=== PATIENT | female | born 1935 | race Caucasian/White ===

== ENCOUNTER 2017-06-02 21:57 | Inpatient (IN) | payer MEDICARE, OTHER ==
[2017-06-02] MEDS ORDERED: Acetaminophen TAB* 325 MG PO PRN (22:35)
[2017-06-02] MEDS ORDERED: Ondansetron ODT TAB* 4 MG SL PRN (22:38)
[2017-06-02] MEDS ORDERED: Morphine ORAL.SOLN 10 mg* 2 MG/ML UDC 5 ml PO PRN ×2 (22:38→22:52)
[2017-06-02] MEDS ORDERED: traMADol TAB* 50 MG PO PRN (22:39)
--- NOTE | 2017-06-02 22:56 | PN ---
Progress Note - Progress Note Date of Service: 06/02/17 Note: Addendum to H&P: HCP is Charo Stahl however number provided to hospice is incorrect. P
[2017-06-02] MEDS ORDERED: Morphine ORAL.SOLN 10 mg* 2 MG/ML UDC 5 ml ONE (22:58)
[2017-06-02] MEDS ORDERED: LORazepam TAB(*) 0.5 MG ONE (22:58)
[2017-06-02] MEDS ORDERED: fentaNYL PATCH 12 MCG/HR ONE (22:59)
[2017-06-02] MEDS: LORazepam TAB(*) 0.5 MG PO PRN (23:01)
[2017-06-02] MEDS: fentaNYL PATCH 12 MCG/HR TRANSDERM SCH (23:01)
[2017-06-03 00:02] VITALS: BP 137/110
[2017-06-03] MEDS: Morphine ORAL CONCENTRATE* 5 MG/0.25 ML ORAL.SYRIN PO PRN ×4 (02:06→11:43)
[2017-06-03] MEDS ORDERED: LORazepam TAB(*) 1 MG PO ONE (03:00)
[2017-06-03] MEDS ORDERED: LORazepam TAB(*) 1 MG ONE (03:06)
--- NOTE | 2017-06-03 05:58 | HP ---
CC: Dr. Razia Cuellar * ADMISSION HISTORY AND PHYSICAL: DATE OF ADMISSION: 06/02/17 PRIMARY CARE PROVIDER: Dr. Razia Cuellar. CODE STATUS: DNR, discussed with nurse practitioner, Renata Abdalla from [facility]. HEALTHCARE PROXY: None. The patient has no family or relatives. SOURCE OF INFORMATION: History obtained from discussion with Renata Abdalla from [facility] as well as review of past medical records. HISTORY OF PRESENT ILLNESS: This is an 82-year-old female with past medical history of tongue neoplasm, status post 2 resections; colon cancer, status post colectomy; CKD; hypothyroidism; lupus; anemia and hypertension as well as admission in April of 2016 for recurrent hip effusion thoughts represent septic arthritis who is discharged at that point to [facility] and has been well on [facility] until the last several days she had increasing nausea and oral secretions for which she was started on scopolamine patch. After initiation of the scopolamine patch, she was noted to be more confused today and had 5 or 6 falls at home. I was contacted by Renata Abdalla from [facility], who requested a direct admission for stabilization on hospice until her confusion resolved or she could be placed on more safe location, which I accepted. I discussed with Renata and the patient remains DNR/DNI, although she did not come with the MOLST form, which I have requested be brought tomorrow. When seen by this author, the patient was confused, slightly agitated, was unable to contribute meaningfully to the history of present illness. PAST MEDICAL HISTORY: Includes CKD; hypothyroidism; systemic lupus erythematosus; anemia; hypertension; tongue neoplasm, status post resection and colon cancer, status post colectomy; left hip recurrent effusion with possible septic arthritis; and protein-calorie malnutrition. MEDICATIONS: The patient unable to contribute meaningfully to review of medications. Previous medications included: 1. Fentanyl patch. 2. Scopolamine. 3. Lorazepam. 4. Hydrocodone. 5. Ferrous sulfate. 6. Docusate. 7. Morphine oral concentrate. 8. Lidocaine topical. 9. Doxepin. 10. Tramadol. 11. Atarax. 12. Montelukast. ALLERGIES: PENICILLIN, PROCAINE, SULFA, KEFLEX, and ERYTHROMYCIN. FAMILY HISTORY: Father has a history of CAD. SOCIAL HISTORY: Has no family or friends in the area, has no healthcare proxy, not a smoker, no drinker. Unable to identify healthcare proxy, although previously listed as Charo. REVIEW OF SYSTEMS: Unable to obtain from patient, does include increased nausea and secretions as indicated from Renata. PHYSICAL EXAMINATION GENERAL: Lying on her side, is confused, talking nonsensically, has copious secretions coming from her mouth. VITAL SIGNS: No vitals to be taken. LUNGS: Clear. HEART: Regular rate and rhythm. Rest of the exam deferred. DIAGNOSTIC STUDIES/LAB DATA: Labs reviewed, none. Data reviewed, none. ASSESSMENT AND PLAN: Delores Ballard is an 82-year-old female with tongue malignancy and severe protein-calorie malnutrition, currently on hospice care, receiving palliative measures, now presenting with confusion and recurrent falls after the initiation of scopolamine patch. 1. Recurrent falls and confusion I suspect in the setting of scopolamine patch. We have been requested not to perform interventions for further elucidation of etiology including withholding blood tests. The purpose of this admission is explicitly to provide a safe environment while the patient is confused and transition to a higher level of care. 2. Tongue cancer. Palliative intent. 3. Comfort measures. We will include fentanyl, oral morphine, hydrocodone, lorazepam, lidocaine ointment, tramadol, and hydroxyzine. 4. Confusion. Holding scopolamine. 5. DVT prophylaxis. None in the setting of comfort measures. [id number]/[facility] #: [id number] RORO
[2017-06-03] MEDS: fentaNYL Patch Check Q Shift 1 NOTE SCH ×2 (06:59→19:16)
[2017-06-03] MEDS: Docusate CAP* 100 MG PO SCH ×2 (08:44→22:05)
[2017-06-03] MEDS: DOXEPIN 10 MG PO SCH (08:45)
--- NOTE | 2017-06-03 13:58 | PN ---
Subjective Date of Service: 06/03/17 Interval History: Pt awakens to voice and tries to speak but her speech is very garbled secondary to a very dry mouth. No issues reported by nursing. Objective Active Medications: Acetaminophen (Tylenol Tab*) 650 mg PO Q4H PRN PRN Reason: FEVER/PAIN Docusate Sodium (Colace Cap*) 100 mg PO BID [facility] Last Admin: 06/03/17 08:44 Dose: Not Given Fentanyl (Duragesic Patch 12 Mcg/Hr *) 12 mcg TRANSDERM Q72H [facility] Last Admin: 06/02/17 23:01 Dose: 12 mcg Hydroxyzine HCl (Atarax Tab*) 25 mg PO Q4H PRN PRN Reason: ITCHING Lorazepam (Ativan Tab(*)) 0.5 mg PO Q6HR PRN PRN Reason: ANXIETY Last Admin: 06/02/17 23:01 Dose: 0.5 mg Montelukast Sodium (Singulair Tab*) 10 mg PO BEDTIME [facility] Morphine Sulfate (Morphine Oral Concentrate*) 5 mg PO Q3H PRN PRN Reason: PAIN Last Admin: 06/03/17 11:43 Dose: 5 mg Non Formulary Med ( Doxepin 10mg Capsule ) 1 dose PO DAILY [facility] PRN Reason: Protocol Last Admin: 06/03/17 08:45 Dose: Not Given Ondansetron HCl (Zofran Odt Tab*) 4 mg SL Q6H PRN PRN Reason: NAUSEA/VOMITING Pharmacy Profile Note (Fentanyl Patch Check Q Shift) 0 note N/A 0700,1900 [facility] Last Admin: 06/03/17 06:59 Dose: 1 note Tramadol HCl (Ultram*) 50 mg PO Q6H PRN PRN Reason: PAIN - MODERATE TO SEVERE Vital Signs - 8 hr 06/03/17 06/03/17 06/03/17 07:45 08:00 08:42 Respiratory 18 18 16 Rate 06/03/17 06/03/17 11:22 11:43 Respiratory 14 14 Rate Oxygen Devices in Use Now: None Appearance: Elderly female lying flat in bed sleeping, awakens to voice, seems agitated at times, NAD Eyes: No Scleral Icterus Ears/Nose/Mouth/Throat: - - very dry oral mucosa with what appears to be crusted blood Respiratory: Symmetrical Chest Expansion and Respiratory Effort, Clear to Auscultation - anteriorly Cardiovascular: NL Sounds; No Murmurs; No JVD, No Edema, - - tachycardic but regular Abdominal: NL Sounds; No Tenderness; No Distention Extremities: No Clubbing, Cyanosis Skin: - - wound under chin without erythema, scant drainage Neurological: - - agitated, yells at me about certain questions but I can not understand what she is saying Assess/Plan/Problems-Billing Ms Ballard is an 82 yo F who has a h/o tongue cancer and has been on hospice at home was admitted for a safe place to reside due to confusion and frequent falls after initiating a scopolamine patch for increased secretions. The patient seems agitated. She has not been awake much and does not appear to have eaten anything today. Will continue inpatient hospice while awaiting bed offer as it appears the patient can not return home safely. Continue prn ativan and morphine. Continue fentanyl patch.
[2017-06-03] MEDS: Montelukast Sodium TAB* 10 MG PO SCH (22:06)
[2017-06-04] MEDS: Morphine ORAL CONCENTRATE* 5 MG/0.25 ML ORAL.SYRIN PO PRN ×6 (01:01→23:47)
[2017-06-04] MEDS: Docusate CAP* 100 MG PO SCH ×2 (07:56→19:41)
[2017-06-04] MEDS: DOXEPIN 10 MG PO SCH (07:56)
[2017-06-04] MEDS: fentaNYL Patch Check Q Shift 1 NOTE SCH ×2 (08:04→19:38)
--- NOTE | 2017-06-04 16:13 | PN ---
Subjective Date of Service: 06/04/17 Interval History: Pt is feeling ok. She does c/o pain in her R mandible. She has been trying to eat ice cream and juice but is having a hard time. She denies any SOB. Objective Active Medications: Acetaminophen (Tylenol Tab*) 650 mg PO Q4H PRN PRN Reason: FEVER/PAIN Docusate Sodium (Colace Cap*) 100 mg PO BID [facility] Last Admin: 06/04/17 07:56 Dose: Not Given Fentanyl (Duragesic Patch 12 Mcg/Hr *) 12 mcg TRANSDERM Q72H [facility] Last Admin: 06/02/17 23:01 Dose: 12 mcg Hydroxyzine HCl (Atarax Tab*) 25 mg PO Q4H PRN PRN Reason: ITCHING Lorazepam (Ativan Tab(*)) 0.5 mg PO Q6HR PRN PRN Reason: ANXIETY Last Admin: 06/02/17 23:01 Dose: 0.5 mg Montelukast Sodium (Singulair Tab*) 10 mg PO BEDTIME [facility] Last Admin: 06/03/17 22:06 Dose: Not Given Morphine Sulfate (Morphine Oral Concentrate*) 5 mg PO Q3H PRN PRN Reason: PAIN Last Admin: 06/04/17 08:03 Dose: 5 mg Non Formulary Med ( Doxepin 10mg Capsule ) 1 dose PO DAILY [facility] PRN Reason: Protocol Last Admin: 06/04/17 07:56 Dose: Not Given Ondansetron HCl (Zofran Odt Tab*) 4 mg SL Q6H PRN PRN Reason: NAUSEA/VOMITING Last Admin: 06/04/17 01:02 Dose: 4 mg Pharmacy Profile Note (Fentanyl Patch Check Q Shift) 0 note N/A 0700,1900 [facility] Last Admin: 06/04/17 08:04 Dose: 1 note Tramadol HCl (Ultram*) 50 mg PO Q6H PRN PRN Reason: PAIN - MODERATE TO SEVERE Oxygen Devices in Use Now: None Appearance: Elderly female sitting on the edge of the bed, trying to eat, NAD Eyes: No Scleral Icterus Ears/Nose/Mouth/Throat: Mucous Membranes Moist, - - edentulous on the bottom, partial glossectomy Respiratory: Symmetrical Chest Expansion and Respiratory Effort, Clear to Auscultation - diminished in all lung negron Cardiovascular: NL Sounds; No Murmurs; No JVD, RRR, No Edema Abdominal: NL Sounds; No Tenderness; No Distention Extremities: No Clubbing, Cyanosis Skin: No Nodules or Sclerosis Neurological: Alert and Oriented x 3 Assess/Plan/Problems-Billing Ms Ballard is an 82 yo F who has a h/o tongue cancer and has been on hospice at home was admitted for a safe place to reside due to confusion and frequent falls after initiating a scopolamine patch for increased secretions. Today the patient is much more alert, her speech is understandable. I suspect her decline prior to admission was secondary to scopolamine. She absolutely does not want to go to a NH for hospice. She in fact spells "H-O-M-[id number]" when we talk about her discharge plan. Will need to discuss with hospice about going home vs a NH. Continue current medication regimen.
[2017-06-04] MEDS: Montelukast Sodium TAB* 10 MG PO SCH (19:41)
[2017-06-04] MEDS: hydrOXYzine HCL TAB* 25 MG PO PRN (20:50)
--- NOTE | 2017-06-04 21:04 | PN ---
Progress Note - Progress Note Date of Service: 06/04/17 Note: Called by patient's primary RN as patient was asking for her levothyroxine to be resumed. Patient adamant that she would like to continue this medication. Reviewed prior discharge summary from 04/2016 and note that patient was on 225mcg daily. Will resume now, nurse to try to confirm dosing with patient this evening as well.
[2017-06-04] MEDS: LORazepam TAB(*) 0.5 MG PO PRN (22:54)
[2017-06-05] MEDS: fentaNYL Patch Check Q Shift 1 NOTE SCH ×2 (06:05→18:44)
[2017-06-05] MEDS: Morphine ORAL CONCENTRATE* 5 MG/0.25 ML ORAL.SYRIN PO PRN ×2 (06:06→13:53)
[2017-06-05] MEDS: LORazepam TAB(*) 0.5 MG PO PRN ×2 (06:07→13:54)
[2017-06-05] MEDS: Levothyroxine TAB* 125 MCG TAB PO SCH (06:07)
[2017-06-05] MEDS: hydrOXYzine HCL TAB* 25 MG PO PRN ×2 (06:07→13:54)
[2017-06-05] MEDS: Levothyroxine TAB* 100 MCG TAB PO SCH (06:07)
--- NOTE | 2017-06-05 10:47 | PN ---
Subjective Date of Service: 06/05/17 Interval History: Pt has been sleeping much of the morning. When I wake her up to talk about making sure she has all of her services in place to go back home with hospice she states I am confusing her and she wants to in her house. Objective Active Medications: Acetaminophen (Tylenol Tab*) 650 mg PO Q4H PRN PRN Reason: FEVER/PAIN Docusate Sodium (Colace Cap*) 100 mg PO BID [facility] Last Admin: 06/04/17 19:41 Dose: Not Given Fentanyl (Duragesic Patch 12 Mcg/Hr *) 12 mcg TRANSDERM Q72H [facility] Last Admin: 06/02/17 23:01 Dose: 12 mcg Hydroxyzine HCl (Atarax Tab*) 25 mg PO Q4H PRN PRN Reason: ITCHING Last Admin: 06/05/17 06:07 Dose: 25 mg Levothyroxine Sodium (Synthroid Tab*) 125 mcg PO DAILY@0600 [facility] Last Admin: 06/05/17 06:07 Dose: 125 mcg Levothyroxine Sodium (Synthroid Tab*) 100 mcg PO DAILY@0600 [facility] Last Admin: 06/05/17 06:07 Dose: 100 mcg Lorazepam (Ativan Tab(*)) 0.5 mg PO Q6HR PRN PRN Reason: ANXIETY Last Admin: 06/05/17 06:07 Dose: 0.5 mg Montelukast Sodium (Singulair Tab*) 10 mg PO BEDTIME [facility] Last Admin: 06/04/17 19:41 Dose: Not Given Morphine Sulfate (Morphine Oral Concentrate*) 5 mg PO Q3H PRN PRN Reason: PAIN Last Admin: 06/05/17 06:06 Dose: 5 mg Non Formulary Med ( Doxepin 10mg Capsule ) 1 dose PO DAILY [facility] PRN Reason: Protocol Last Admin: 06/04/17 07:56 Dose: Not Given Ondansetron HCl (Zofran Odt Tab*) 4 mg SL Q6H PRN PRN Reason: NAUSEA/VOMITING Last Admin: 06/04/17 01:02 Dose: 4 mg Pharmacy Profile Note (Fentanyl Patch Check Q Shift) 0 note N/A 0700,1900 [facility] Last Admin: 06/05/17 06:05 Dose: 1 note Tramadol HCl (Ultram*) 50 mg PO Q6H PRN PRN Reason: PAIN - MODERATE TO SEVERE Last Admin: 06/04/17 22:55 Dose: 50 mg Vital Signs - 8 hr 06/05/17 06/05/17 06/05/17 06:06 06:07 09:46 Respiratory 18 18 18 Rate Oxygen Devices in Use Now: None Appearance: Elderly female lying in bed, sleeping, awakens to light touch, NAD Eyes: No Scleral Icterus Ears/Nose/Mouth/Throat: Mucous Membranes Moist Respiratory: Symmetrical Chest Expansion and Respiratory Effort, Clear to Auscultation - anterior Cardiovascular: NL Sounds; No Murmurs; No JVD, RRR, No Edema Abdominal: NL Sounds; No Tenderness; No Distention Extremities: No Clubbing, Cyanosis Skin: No Nodules or Sclerosis Neurological: - - seems slightly confused this AM Assess/Plan/Problems-Billing Ms Ballard is an 82 yo F who has a h/o tongue cancer and has been on hospice at home was admitted for a safe place to reside due to confusion and frequent falls after initiating a scopolamine patch for increased secretions. She absolutely does not want to go to a [place] for hospice. Will have case management touch base with hospice to determine if they would be comfortable caring for the patient back home. For now continue general inpatient hospice.
[2017-06-05] MEDS: DOXEPIN 10 MG PO SCH (11:44)
[2017-06-05] MEDS: Docusate CAP* 100 MG PO SCH ×2 (11:44→19:10)
[2017-06-05] MEDS: Montelukast Sodium TAB* 10 MG PO SCH (19:10)
[2017-06-05] MEDS: fentaNYL PATCH 12 MCG/HR TRANSDERM SCH (22:28)
[2017-06-06] MEDS: fentaNYL Patch Check Q Shift 1 NOTE SCH ×2 (06:45→18:11)
[2017-06-06] MEDS: DOXEPIN 10 MG PO SCH (09:01)
[2017-06-06] MEDS: Docusate CAP* 100 MG PO SCH ×2 (09:01→19:28)
[2017-06-06] MEDS: LORazepam TAB(*) 0.5 MG PO PRN ×2 (09:06→17:17)
[2017-06-06] MEDS: Levothyroxine TAB* 100 MCG TAB PO SCH (09:06)
[2017-06-06] MEDS: Morphine ORAL CONCENTRATE* 5 MG/0.25 ML ORAL.SYRIN PO PRN ×2 (09:07→17:17)
[2017-06-06] MEDS: Levothyroxine TAB* 125 MCG TAB PO SCH (09:07)
--- NOTE | 2017-06-06 10:45 | PN ---
Subjective Date of Service: 06/06/17 Interval History: Pt is feeling fine today. She again states she does not want to go to the hospice residence. She denies SOB. She states her R lower jaw hurts. Objective Active Medications: Acetaminophen (Tylenol Tab*) 650 mg PO Q4H PRN PRN Reason: FEVER/PAIN Docusate Sodium (Colace Cap*) 100 mg PO BID [facility] Last Admin: 06/06/17 09:01 Dose: Not Given Fentanyl (Duragesic Patch 12 Mcg/Hr *) 12 mcg TRANSDERM Q72H [facility] Last Admin: 06/05/17 22:28 Dose: 12 mcg Hydroxyzine HCl (Atarax Tab*) 25 mg PO Q4H PRN PRN Reason: ITCHING Last Admin: 06/05/17 13:54 Dose: 25 mg Levothyroxine Sodium (Synthroid Tab*) 125 mcg PO DAILY@0600 [facility] Last Admin: 06/06/17 09:07 Dose: 125 mcg Levothyroxine Sodium (Synthroid Tab*) 100 mcg PO DAILY@0600 [facility] Last Admin: 06/06/17 09:06 Dose: 100 mcg Lorazepam (Ativan Tab(*)) 0.5 mg PO Q6HR PRN PRN Reason: ANXIETY Last Admin: 06/06/17 09:06 Dose: 0.5 mg Montelukast Sodium (Singulair Tab*) 10 mg PO BEDTIME [facility] Last Admin: 06/05/17 19:10 Dose: Not Given Morphine Sulfate (Morphine Oral Concentrate*) 5 mg PO Q3H PRN PRN Reason: PAIN Last Admin: 06/06/17 09:07 Dose: 5 mg Non Formulary Med ( Doxepin 10mg Capsule ) 1 dose PO DAILY [facility] PRN Reason: Protocol Last Admin: 06/06/17 09:01 Dose: Not Given Ondansetron HCl (Zofran Odt Tab*) 4 mg SL Q6H PRN PRN Reason: NAUSEA/VOMITING Last Admin: 06/04/17 01:02 Dose: 4 mg Pharmacy Profile Note (Fentanyl Patch Check Q Shift) 0 note N/A 0700,1900 [facility] Last Admin: 06/06/17 06:45 Dose: 1 note Tramadol HCl (Ultram*) 50 mg PO Q6H PRN PRN Reason: PAIN - MODERATE TO SEVERE Last Admin: 06/04/17 22:55 Dose: 50 mg Vital Signs - 8 hr 06/06/17 06/06/17 06/06/17 08:00 09:06 09:07 Respiratory 18 16 16 Rate Oxygen Devices in Use Now: None Appearance: Elderly female sitting up in a chair trying to eat breakfast, NAD Eyes: No Scleral Icterus Ears/Nose/Mouth/Throat: Mucous Membranes Moist Respiratory: Symmetrical Chest Expansion and Respiratory Effort, Clear to Auscultation - anteriorly Cardiovascular: NL Sounds; No Murmurs; No JVD, RRR, No Edema Abdominal: NL Sounds; No Tenderness; No Distention Extremities: No Clubbing, Cyanosis Skin: No Nodules or Sclerosis, - - wound to chin unchanged Neurological: Alert and Oriented x 3 Assess/Plan/Problems-Billing Ms Ballard is an 82 yo F who has a h/o tongue cancer and has been on hospice at home was admitted for a safe place to reside due to confusion and frequent falls after initiating a scopolamine patch for increased secretions. She absolutely does not want to go to a NH for hospice or the hospice residence. Will have case management touch base with hospice to determine if they would be comfortable caring for the patient back home. For now continue general inpatient hospice.
[2017-06-06] MEDS: hydrOXYzine HCL TAB* 25 MG PO PRN (17:17)
[2017-06-06] MEDS: Montelukast Sodium TAB* 10 MG PO SCH (19:28)
[2017-06-07] MEDS: Morphine ORAL CONCENTRATE* 5 MG/0.25 ML ORAL.SYRIN PO PRN ×2 (00:25→08:44)
[2017-06-07] MEDS: DOXEPIN 10 MG PO SCH (07:47)
[2017-06-07] MEDS: Docusate CAP* 100 MG PO SCH (07:47)
[2017-06-07] MEDS: fentaNYL Patch Check Q Shift 1 NOTE SCH (08:06)
[2017-06-07] MEDS ORDERED: Morphine ORAL CONCENTRATE* 5 MG/0.25 ML ORAL.SYRIN PO ONE ×2 (09:44→13:00)
[2017-06-07] MEDS ORDERED: Morphine ORAL CONCENTRATE* 5 MG/0.25 ML ORAL.SYRIN PO PRN (09:44)
--- NOTE | 2017-06-07 09:47 | PN ---
Subjective Date of Service: 06/07/17 Interval History: pt c/o problems with swallowing and r hip pain. asking if she could have a massage Objective Active Medications: Acetaminophen (Tylenol Tab*) 650 mg PO Q4H PRN PRN Reason: FEVER/PAIN Docusate Sodium (Colace Cap*) 100 mg PO BID [facility] Last Admin: 06/07/17 07:47 Dose: Not Given Fentanyl (Duragesic Patch 12 Mcg/Hr *) 12 mcg TRANSDERM Q72H [facility] Last Admin: 06/05/17 22:28 Dose: 12 mcg Hydroxyzine HCl (Atarax Tab*) 25 mg PO Q4H PRN PRN Reason: ITCHING Last Admin: 06/06/17 17:17 Dose: 25 mg Levothyroxine Sodium (Synthroid Tab*) 125 mcg PO DAILY@0600 [facility] Last Admin: 06/06/17 09:07 Dose: 125 mcg Levothyroxine Sodium (Synthroid Tab*) 100 mcg PO DAILY@0600 [facility] Last Admin: 06/06/17 09:06 Dose: 100 mcg Lorazepam (Ativan Tab(*)) 0.5 mg PO Q6HR PRN PRN Reason: ANXIETY Last Admin: 06/06/17 17:17 Dose: 0.5 mg Montelukast Sodium (Singulair Tab*) 10 mg PO BEDTIME [facility] Last Admin: 06/06/17 19:28 Dose: Not Given Morphine Sulfate (Morphine Oral Concentrate*) 5 mg PO Q3H PRN PRN Reason: PAIN Last Admin: 06/07/17 08:44 Dose: 5 mg Non Formulary Med ( Doxepin 10mg Capsule ) 1 dose PO DAILY [facility] PRN Reason: Protocol Last Admin: 06/07/17 07:47 Dose: Not Given Ondansetron HCl (Zofran Odt Tab*) 4 mg SL Q6H PRN PRN Reason: NAUSEA/VOMITING Last Admin: 06/04/17 01:02 Dose: 4 mg Pharmacy Profile Note (Fentanyl Patch Check Q Shift) 0 note N/A 0700,1900 [facility] Last Admin: 06/07/17 08:06 Dose: 1 note Tramadol HCl (Ultram*) 50 mg PO Q6H PRN PRN Reason: PAIN - MODERATE TO SEVERE Last Admin: 06/04/17 22:55 Dose: 50 mg Vital Signs - 8 hr 06/07/17 06/07/17 06/07/17 05:14 08:00 08:44 Respiratory 18 16 16 Rate Oxygen Devices in Use Now: None Appearance: 82 yo f in nAD, AAOx3 Eyes: No Scleral Icterus, PERRLA Ears/Nose/Mouth/Throat: NL Teeth, Lips, Gums, Mucous Membranes Moist, - - r mandibular area with edema Neck: NL Appearance and Movements; NL JVP Respiratory: Symmetrical Chest Expansion and Respiratory Effort Cardiovascular: NL Sounds; No Murmurs; No JVD, RRR Abdominal: NL Sounds; No Tenderness; No Distention, No Hepatosplenomegaly Lymphatic: No Cervical Adenopathy Extremities: No Edema, No Clubbing, Cyanosis Skin: No Nodules or Sclerosis, - - R eybrow ecchymosis Neurological: NL Muscle Strength and Tone Assess/Plan/Problems-Billing Ms Ballard is an 82 yo F who has a h/o tongue cancer and has been on hospice at home was admitted for a safe place to reside due to confusion and frequent falls after initiating a scopolamine patch for increased secretions. She absolutely does not want to go to a NH for hospice or the hospice residence. But she is unsafe to go home. Hospice following. On inpatient hospice Will increase Roxanol from 5 to 10 mg prn
[2017-06-07] MEDS: Levothyroxine TAB* 125 MCG TAB PO SCH (10:02)
[2017-06-07] MEDS: Levothyroxine TAB* 100 MCG TAB PO SCH (10:02)
--- NOTE | 2017-06-07 23:02 | DS ---
CC: Dr. Nica Antony, Hospice Care; Dr. Cuellar * DISCHARGE SUMMARY: DATE OF ADMISSION: 06/02/17 DATE OF DISCHARGE: 06/07/17 PRIMARY CARE PROVIDER: Dr. Razia Cuellar. DISCHARGE DIAGNOSES: Altered mental status, history of falls, and inability of taking care of herself in a patient who was on outpatient hospice for multiple malignancies. SECONDARY DIAGNOSES: 1. History of tongue cancer. 2. History of colon cancer, status post colectomy. 3. Chronic kidney disease. 4. Hypothyroidism. 5. History of lupus. 6. History of anemia. 7. History of hypertension. 8. History of hypothyroidism. 9. History of possible septic hip on the right. MEDICATIONS: At discharge include: 1. Colace 100 mg daily. 2. Docusate 10 mg daily. 3. Fentanyl patch 12 mcg every 72 hours. 4. Hydroxyzine 25 mg every 4 hours p.r.n. 5. Levothyroxine a total of 225 mcg daily. 6. Lidocaine ointment on a p.r.n. basis. 7. Lorazepam 0.5 mg every 6 hours p.r.n. 8. Singulair 10 mg at bedtime. 9. Morphine oral concentrate 10 mg every 2 hours p.r.n. 10. Ultram 50 mg every 6 hours p.r.n. HOSPITALIZATION COURSE: Delores Ballard is an 82-year-old female who had been on hospice at home for history of multiple malignancies and possibility of septic hip in the past, who was noted to have frequent falls and occasional confusion and was unable to take care of herself. She was sent by hospice to the hospital for evaluation. Here she was kept on an inpatient hospice and comfort care orders. She had been doing relatively well, although she does get intermittently confused. On 06/07/17, the patient was noted to be a good candidate for hospice residence where a bed was available. She is being transferred to hospice residence for the remaining time. PHYSICAL EXAMINATION AT THE TIME OF DISCHARGE: Please see daily progress notes. TIME SPENT: Approximately 35 minutes were spent on the patient's discharge. [id number]/[facility] #: [id number] MTDD
== END 2017-06-07 14:26 | disposition hospice, home (50) | DRG 861 ==
LOC: MED 21:57
PROVIDERS: ADMIT Internal Medicine; ATTEND Internal Medicine
DX: R41.82 Altered mental status, unspecified (principal); E43 Unspecified severe protein-calorie malnutrition; M32.9 Systemic lupus erythematosus, unspecified; C02.9 Malignant neoplasm of tongue, unspecified; D64.9 Anemia, unspecified; M00.851 Arthritis due to other bacteria, right hip; C18.9 Malignant neoplasm of colon, unspecified; Z68.1 Body mass index [BMI] 19.9 or less, adult; T44.3X5A Adverse effect of other parasympatholytics [anticholinergics and antimuscarinics] and spasmolytics, initial encounter; Y92.009 Unspecified place in unspecified non-institutional (private) residence as the place of occurrence of the external cause; Z51.5 Encounter for palliative care; I12.9 Hypertensive chronic kidney disease with stage 1 through stage 4 chronic kidney disease, or unspecified chronic kidney disease; N18.9 Chronic kidney disease, unspecified; E03.9 Hypothyroidism, unspecified; Z66 Do not resuscitate; Z91.81 History of falling; Z79.899 Other long term (current) drug therapy; Z88.1 Allergy status to other antibiotic agents; Z88.5 Allergy status to narcotic agent; Z88.0 Allergy status to penicillin; Z88.2 Allergy status to sulfonamides; Z88.8 Allergy status to other drugs, medicaments and biological substances; Z82.49 Family history of ischemic heart disease and other diseases of the circulatory system
CPT/HCPCS: A9270-GY